=== PATIENT | male | born 1965 ===

== ENCOUNTER 2024-07-12 15:25 | Outpatient (RCR) | payer BC, SELFPAY | END 2024-07-17 23:59 | disposition home or self-care (01) | LOC: CR 15:25 | PROVIDERS: PCP Internal Medicine; Visit Provider Internal Medicine Cardiovascular Disease ==

== ENCOUNTER 2024-08-16 10:36 | Outpatient (RCR) | payer BC, SELFPAY ==
--- NOTE | 2024-07-26 11:00 | RT.EKG_ITS ---
APPROVED REPORT Exam: Resting ECG Reason for Exam: Baseline Patient Location: O HR:102 bpm ECG Measurements Heart Rate 102 AXIS NV [id number] P [id number] QRSd 94 QRS 43 QT 334 T -27 QTc 436 Conclusion Atrial fibrillation...V-rate 67-139, irreg A-activity Inferior infarct, age indeterminate...Q>35mS, T neg, II III aVF
--- NOTE | 2024-08-10 13:12 | NUR.NOTE ---
Nursing Note: Patient noted to have increased HR in cardiac rehab with minimal exertion. Patient is in afib with HR's going into the 150's-160's and CR staff have stopped patient from exercise on machines on multiple days due to increased HR. Patient states he can intermittently tell when his HR is elevated. CR staff have reached out to [facility] in [place] via fax on 07/31/24 with no response. Per conversation with Dr. Crow today (08/10/24) patient is to be scheduled with EP for possible ablation. Patient ok to exercise w/out HR limits per Dr. Crow as long as he does not fatigue and does not feel unwell. Dr. Crow does not recommend a change in medication regime at this time. Staff will continue to monitor patient closely.
== END 2024-08-16 23:59 | disposition home or self-care (01) ==
LOC: CR 10:36
PROVIDERS: PCP Internal Medicine; Visit Provider Internal Medicine Cardiovascular Disease
CPT/HCPCS: S9472

== ENCOUNTER 2024-09-15 10:00 | Outpatient (RCR) | payer BC, SELFPAY | END 2024-09-16 23:59 | disposition home or self-care (01) | LOC: CR 10:00 | PROVIDERS: PCP Internal Medicine; Visit Provider Internal Medicine Cardiovascular Disease | DX: I21.4 Non-ST elevation (NSTEMI) myocardial infarction (principal); Z51.89 Encounter for other specified aftercare | CPT/HCPCS: S9472 ==

== ENCOUNTER 2024-10-16 10:00 | Outpatient (RCR) | payer BC, SELFPAY | END 2024-10-16 23:59 | disposition home or self-care (01) | LOC: CR 10:00 | PROVIDERS: PCP Internal Medicine; Visit Provider Internal Medicine Cardiovascular Disease | DX: I21.4 Non-ST elevation (NSTEMI) myocardial infarction (principal); Z95.5 Presence of coronary angioplasty implant and graft; Z51.89 Encounter for other specified aftercare | CPT/HCPCS: S9472 ==

== ENCOUNTER 2024-10-30 10:00 | Outpatient (RCR) | payer BC, SELFPAY | END 2024-11-16 23:59 | disposition home or self-care (01) | LOC: CR 10:00 | PROVIDERS: PCP Internal Medicine; Visit Provider Internal Medicine Cardiovascular Disease | DX: I21.4 Non-ST elevation (NSTEMI) myocardial infarction (principal); Z51.89 Encounter for other specified aftercare | CPT/HCPCS: S9472 ==

== ENCOUNTER 2024-11-20 10:00 | Outpatient (RCR) | payer BC, SELFPAY | END 2024-12-17 23:59 | disposition home or self-care (01) | LOC: CR 10:00 | PROVIDERS: PCP Internal Medicine; Visit Provider Internal Medicine Cardiovascular Disease | DX: I21.4 Non-ST elevation (NSTEMI) myocardial infarction (principal) | CPT/HCPCS: S9472 ==